=== PATIENT | male | born 1950 | race Hispanic/Latino ===

== ENCOUNTER → 2018-04-19 | Outpatient (CLI) | payer OTHER ==
[~2018-04-19] VITALS: Ht 165.1 cm; Wt 76.2 kg
[~2018-04-19] MED LIST: REGADENOSON 0.4 MG/5 ML PF SYG IVP ONE; REGADENOSON 0.4 MG/5 ML PF SYG IVP SCH
== END | disposition home or self-care (01) ==
LOC: SHCH 09:10
PROVIDERS: ATTEND Internal Medicine Cardiovascular Disease
DX: I10 Essential (primary) hypertension (principal); I35.0 Nonrheumatic aortic (valve) stenosis
CPT/HCPCS: 78452; 93017; 96374; A9500 ×2; J2785

== ENCOUNTER → 2019-10-25 | Outpatient (CLI) | payer OTHER | END | disposition home or self-care (01) | LOC: SHCH 08:36 | PROVIDERS: ATTEND Internal Medicine Cardiovascular Disease | DX: I10 Essential (primary) hypertension (principal); I35.0 Nonrheumatic aortic (valve) stenosis ==

== ENCOUNTER 2021-08-24 19:19 | Emergency (ER) | payer OTHER ==
[~2021-08-24] VITALS: Ht 165.1 cm; Wt 83.0 kg
[2021-08-24 19:43] LABS: BASOPHILS % (AUTO) 0.5 % (0.0-5.0); EOSINOPHILS % (AUTO) 0.8 % (0.0-8.0); HEMATOCRIT 37.2 % (42-54); LYMPHOCYTES % (AUTO) 20.6 % (21.0-51.0); MEAN CORPUSCULAR HEMOGLOBIN 26.4 pg (27.0-33.0); MEAN CORPUSCULAR HGB CONC 32.5 g/dL (32.0-36.0); MEAN CORPUSCULAR VOLUME 81.2 fL (79-99); MONOCYTES % (AUTO) 7.5 % (3.0-13.0); NEUTROPHILS % (AUTO) 70.2 % (40.0-77.0); PLATELET COUNT (AUTO) 167 K/uL (130-400); RED BLOOD CELL COUNT(AUTO) 4.58 MIL/uL (4.50-6.20); RED CELL DISTRIBUTION WIDTH 13.7 % (11.0-15.5); WHITE BLOOD COUNT (AUTO) 12.9 K/uL (4.8-10.8)
[2021-08-24 19:47] LABS: APPEARANCE,URINE Clear (CLEAR); BILIRUBIN,URINE Negative (NEGATIVE); COLOR,URINE Dark Yellow (YELLOW); GLUCOSE, URINE (UA) Negative (NEGATIVE); KETONES,URINE Trace mg/dL (NEGATIVE); LEUKOCYTE ESTERASE ,URINE Small (NEGATIVE); NITRATE,URINE Negative (NEGATIVE); OCCULT BLOOD,URINE Negative (NEGATIVE); PROTEIN,URINE Trace mg/dL (NEGATIVE)
[2021-08-24 20:01] LABS: BACTERIA,URINE Few /HPF (None Seen); HYALINE CASTS, URINE 26-50 /LPF (0-1 /LPF); MUCUS,URINE Few LPF (None Seen); RBC,URINE 0-1 /HPF (0-1); SQUAMOUS EPITHELIAL CELL,UR Rare /HPF (0-2)
[2021-08-24 20:05] LABS: BILIRUBIN,TOTAL 0.4 mg/dL (0.2-1.0); CREATININE 1.4 mg/dL (0.5-1.5); POTASSIUM 3.5 mmol/L (3.5-5.1); TOTAL PROTEIN, SERUM 7.9 g/dL (6.0-8.3)
[2021-08-24] MEDS ORDERED: 0.9%NACL 1000ML 1,000 ML IV ONE (20:30)
[2021-08-24] MEDS ORDERED: CEFTRIAXONE 1G VIAL IVP ONE (21:30)
[2021-08-24] MEDS ORDERED: CEPH500B PO (23:22)
[2021-08-24 23:25] VITALS: BP 128/48
== END 2021-08-24 23:41 | disposition home or self-care (01) ==
LOC: EDH 19:19
DX: N39.0 Urinary tract infection, site not specified (principal); E86.9 Volume depletion, unspecified; R55 Syncope and collapse; R00.1 Bradycardia, unspecified; I10 Essential (primary) hypertension; E78.5 Hyperlipidemia, unspecified; Z79.82 Long term (current) use of aspirin; Z86.11 Personal history of tuberculosis; Z20.822 Contact with and (suspected) exposure to COVID-19
CPT/HCPCS: 36415; 71045; 80053; 81001; 83880; 84484 ×2; 85025; 87088; 87635; 87804 ×2; 93005; 96361; 96374; 99285; C9803; J0696; J7030

== ENCOUNTER → 2022-11-01 | Outpatient (CLI) | payer OTHER ==
[~2022-11-01] MED LIST changes: +CEPH500B PO; -REGADENOSON 0.4 MG/5 ML PF SYG IVP ONE; -REGADENOSON 0.4 MG/5 ML PF SYG IVP SCH
== END | disposition home or self-care (01) ==
LOC: SHCH 08:05
PROVIDERS: ATTEND Internal Medicine Cardiovascular Disease
DX: I35.2 Nonrheumatic aortic (valve) stenosis with insufficiency (principal); I51.7 Cardiomegaly
CPT/HCPCS: 93306

== ENCOUNTER → 2024-01-18 | Outpatient (CLI) | payer OTHER | END | disposition home or self-care (01) | LOC: SHCH 09:18 | PROVIDERS: ATTEND Internal Medicine Cardiovascular Disease | DX: I35.0 Nonrheumatic aortic (valve) stenosis (principal) | CPT/HCPCS: 93306 ==